=== PATIENT | female | born 1995 | race Caucasian/White ===

== ENCOUNTER → 2019-04-26 13:45 | Outpatient (CLI) | payer OTHER, SELFPAY | PROVIDERS: Visit Provider Nurse Practitioner Family | DX: Z32.01 Encounter for pregnancy test, result positive (principal) | CPT/HCPCS: 36415; 84702 ==

== ENCOUNTER → 2019-05-03 08:08 | Outpatient (CLI) | payer OTHER, SELFPAY ==
--- NOTE | 2019-05-03 08:17 | US_ITS ---
PROCEDURE: US OB <= 14 WEEKS FETUS CLINICAL INDICATION: DATES Evaluate gestational age, dates COMPARISON: No exams were available for comparison FINDINGS: An intrauterine gestational sac is present with a pole with a crown-rump length of 5.75cm correlating to gestational age of 12weeks 6days. heart tones are present with an FHR of 158bpm. There is breech positioning at this time. Placenta is forming posteriorly. Adnexa are unremarkable. IMPRESSION: Live IUP at 12 weeks 6 days Estimated due date by Ultrasound is 11/09/2019 Dictated by: Jose Tyson MD 05/03/2019 15:58 Electronically signed by Jose Tyson MD in [facility] 05/03/2019 15:58
== END ==
PROVIDERS: PCP Internal Medicine Adolescent Medicine; Visit Provider Nurse Practitioner Family
DX: Z34.90 Encounter for supervision of normal pregnancy, unspecified, unspecified trimester (principal)
CPT/HCPCS: 76801